=== PATIENT | female | born 1960 ===

== ENCOUNTER 2017-05-28 13:12 | Outpatient (CLI) | END 2017-05-28 13:13 | disposition home or self-care (01) | LOC: NONPT 13:12 | PROVIDERS: ATTEND Internal Medicine Nephrology | DX: N18.6 End stage renal disease (principal); D63.1 Anemia in chronic kidney disease | CPT/HCPCS: 85014; 85018 ==

== ENCOUNTER 2017-06-23 09:01 | Outpatient (CLI) | payer OTHER | END 2017-06-23 09:02 | disposition home or self-care (01) | LOC: NONPT 09:01 | PROVIDERS: ATTEND Internal Medicine Nephrology | DX: D64.9 Anemia, unspecified (principal) | CPT/HCPCS: 85014; 85018 ==

== ENCOUNTER 2017-06-25 09:22 | Outpatient (CLI) | payer OTHER | END 2017-06-25 09:23 | disposition home or self-care (01) | LOC: NONPT 09:22 | PROVIDERS: ATTEND Internal Medicine Nephrology | DX: D64.9 Anemia, unspecified (principal) | CPT/HCPCS: 85014; 85018 ==

== ENCOUNTER 2017-09-17 08:46 | Outpatient (CLI) | END 2017-09-17 08:47 | disposition home or self-care (01) | LOC: NONPT 08:46 | PROVIDERS: ATTEND Internal Medicine Nephrology | DX: D64.9 Anemia, unspecified (principal) | CPT/HCPCS: 85014; 85018 ==

== ENCOUNTER 2017-09-17 10:47 | Outpatient (CLI) | END 2017-09-17 11:08 | disposition short-term general hospital (02) | LOC: AMBL 10:47 | PROVIDERS: ATTEND Internal Medicine | DX: D64.9 Anemia, unspecified (principal); R53.1 Weakness; I95.9 Hypotension, unspecified; M79.89 Other specified soft tissue disorders; N18.9 Chronic kidney disease, unspecified; Z99.2 Dependence on renal dialysis; Z95.2 Presence of prosthetic heart valve; Z98.890 Other specified postprocedural states ==

== ENCOUNTER 2017-09-20 08:52 | Outpatient (CLI) | END 2017-09-20 08:53 | disposition home or self-care (01) | LOC: NONPT 08:52 | PROVIDERS: ATTEND Nurse Practitioner Family | DX: D64.9 Anemia, unspecified (principal) | CPT/HCPCS: 85014; 85018 ==